=== PATIENT | male | born 1990 | race African-American/Black ===

== ENCOUNTER 2019-03-08 10:27 | Day surgery (SDC) | payer MEDICAID ==
[~2019-03-08] VITALS: Ht 182.9 cm; Wt 132.0 kg
[2019-03-08] MEDS ORDERED: TETRACAINE 0.5% OPHTH DROPS 4ML ONE (10:32)
[2019-03-08] MEDS ORDERED: PREDNISOLONE ACETATE 1% OPHTH DROPS 1ML ONE (10:32)
[2019-03-08] MEDS ORDERED: BALANCED SALT IRRIG SOLN 15ML ONE (10:32)
[2019-03-08] MEDS ORDERED: LIDOCAINE HCL 2%/EPINEPHRINE 1:100,000 20 ML VIAL INFIL ONE (10:32)
[2019-03-08] MEDS ORDERED: BUPIVACAINE HCL/PF 0.75% (7.5MG/ML) 10ML ONE (10:32)
[2019-03-08] MEDS ORDERED: CIPROFLOXACIN 0.3% OPHTH SOLN 2.5ML ONE (10:32)
[2019-03-08] MEDS ORDERED: CEFAZOLIN 1000MG PREMIX 50 ML IV ONE ×2 (11:30)
[2019-03-08 11:35] LABS: BASOPHILS % 0.7 % (0.0-2.0); EOSINOPHILS % 2.4 % (0.0-5.0); HEMATOCRIT. 43.5 % (42.0-52.0); LYMPHOCYTES % 23.7 % (20.0-50.0); MEAN CORPUSCULAR HEMOGLOBIN 33.6 pg (28.0-32.0); MEAN CORPUSCULAR VOLUME 97.7 fL (80.0-94.0); MEAN PLATELET VOLUME 8.2 fl (7.4-10.4); MONOCYTES % 9.9 % (2.0-8.0); NEUTROPHILS % 63.3 % (40.0-76.0); PLATELET 311 x1000/uL (130-400); RED BLOOD CELL COUNT 4.45 mill/uL (4.7-6.1); RED CELL DISTRIBUTION WIDTH 14.3 % (11.6-14.6)
[2019-03-08 11:44] LABS: CHLORIDE 105 mEq/L (98-107)
[2019-03-08 11:45] LABS: PARTIAL THROMBOPLASTIN TIME 27.8 sec (23.4-31.0); PROTHROMBIN TIME 10.6 sec (9.6-11.0)
[2019-03-08] MEDS ORDERED: HYDROCODONE/ACETAMINOPHEN 5/325MG TABLET PO PRN (12:45)
[2019-03-08] MEDS ORDERED: IPRATROPIUM/ALBUTEROL 0.5-3(2.5)MG/3ML NEB INH PRN (12:45)
[2019-03-08] MEDS ORDERED: POTASSIUM CHLORIDE 20MEQ/PACKET PO ONE (12:45)
[2019-03-08] MEDS ORDERED: MAGNESIUM/ALUMINUM HYDROXIDE/SIMETHICONE 30ML UDC PO PRN (12:45)
[2019-03-08] MEDS ORDERED: MORPHINE SULFATE 2 MG/ML CPJ (NOT FOR IM USE) IV PRN (12:45)
[2019-03-08] MEDS ORDERED: CLONIDINE 0.1MG TABLET PO PRN (12:45)
[2019-03-08] MEDS ORDERED: DOCUSATE SODIUM 100MG CAPSULE PO PRN (12:45)
[2019-03-08] MEDS ORDERED: GUAIFENESIN 200MG/10ML SUGAR FREE UDC PO PRN (12:45)
[2019-03-08] MEDS ORDERED: ONDANSETRON HCL 4MG/2ML INJ IV PRN (12:45)
[2019-03-08] MEDS ORDERED: ACETAMINOPHEN 325MG TABLET PO PRN (12:45)
[2019-03-08] MEDS ORDERED: DIPHENHYDRAMINE 50MG/ML VIAL IV PRN (12:45)
[2019-03-08 13:01] LABS: PHOSPHORUS 2.6 mg/dL (2.5-4.9)
[2019-03-08 15:04] VITALS: BP 125/67
[2019-03-08] MEDS ORDERED: HYALURONATE SODIUM IO NR (16:00)
[2019-03-08] MEDS ORDERED: HYALURONATE SODIUM 14 MG/ML 0.85ML SYRINGE IO NR ×3 (16:00→16:15)
[2019-03-08] MEDS ORDERED: DIPHENHYDRAMINE 50MG/ML VIAL ONE (16:02)
[2019-03-08] MEDS ORDERED: FENTANYL CITRATE/PF 50MCG/ML 2ML VIAL ONE (16:02)
[2019-03-08] MEDS ORDERED: MIDAZOLAM HCL 2 MG/2 ML VIAL ONE (16:02)
[2019-03-08] MEDS ORDERED: LIDOCAINE HCL/PF 1% 10 MG/ML 5ML VIAL ONE (16:03)
[2019-03-08] MEDS ORDERED: PROPOFOL 200MG/20ML VIAL IV ONE (16:03)
[2019-03-08] MEDS ORDERED: DEXAMETHASONE 4MG/ML 1ML VIAL ONE (16:22)
== END 2019-03-08 17:30 | disposition home or self-care (01) ==
LOC: ER 10:27 → OR 12:29 → EDBEDREQ 12:40 → ENRESERV 14:27 → OR 17:30 → CANBEDREQ 03-09 19:46
PROVIDERS: ATTEND Ophthalmology
DX: H44.001 Unspecified purulent endophthalmitis, right eye (principal); E66.01 Morbid (severe) obesity due to excess calories; Z68.39 Body mass index [BMI] 39.0-39.9, adult
CPT/HCPCS: 36415; 66999; 80053; 83735; 84100; 85025; 85610; 85730; 87070; 87075; 87205; 93970; J0690; J1100; J1200; J2250; J2704; J3010; J3490